=== PATIENT | male | born 1955 | race Caucasian/White ===

== ENCOUNTER 2016-11-21 14:05 | Outpatient (CLI) | payer BC ==
--- NOTE | 2016-11-21 15:56 | ULT ---
TESTICULAR/SCROTOL ULTRASOUND: History: Epididymitis and right testicular swelling. Technique: Multiplanar grayscale and color doppler images were obtained in a testicular/scrotal ultr asound. FINDINGS: Both testicles are normal in echogenicity without focal lesions and demonstrated normal symmetric in ternal flow. Small bilateral hydroceles are seen. Both epididymi appear enlarged without significant increased flow on one side compared to the either, or in relation to the testicle. IMPRESSION: 1. Bilateral hydroceles. 2. Enlargement of the epididymi without increased flow. POS: BRYAN
== END 2016-11-21 14:06 | disposition home or self-care (01) ==
LOC: ULT 14:05
PROVIDERS: ATTEND Family Medicine
DX: N45.1 Epididymitis (principal); N43.3 Hydrocele, unspecified; N50.89 Other specified disorders of the male genital organs
CPT/HCPCS: 76870; 93976

== ENCOUNTER 2017-04-15 15:30 | Outpatient (CLI) | payer BC | END 2017-04-15 15:31 | disposition home or self-care (01) | LOC: BICRAD 15:30 | PROVIDERS: ATTEND Chiropractor | DX: M54.5 Low back pain (principal); M47.22 Other spondylosis with radiculopathy, cervical region; M47.896 Other spondylosis, lumbar region | CPT/HCPCS: 72050; 72110 ==

== ENCOUNTER 2017-07-09 16:07 | Outpatient (CLI) | payer BC ==
[2017-07-09 16:43] LABS: #Eosinphils 0.2 thou/uL (0.0-0.7); #Monocytes 0.6 thou/uL (0.11-0.59); #Neutrophils 4.3 thou/uL (1.40-6.50); %Basophils 0.7 % (0.0-1.0); %Eosinophils 2.8 % (0.0-10.0); %Lymphocytes 27.9 % (21.0-51.0); %Monocytes 8.1 % (0.0-10.0); %Neutrophils 60.6 % (42.0-75.0); Hemoglobin 12.4 g/dL (14.0-18.0); Mean Corpuscular HGB CONC 34.8 g/dL (32.0-36.0); Mean Corpuscular Volume 97.8 fl (80.0-94.0); Mean Platelet Volume 8.3 fL (7.4-10.4); Platelet Count 242 thou/uL (130-400); RBC Distribution Width 13.6 % (11.5-14.5); Red Blood Cell (RBC) Count 3.65 mill/uL (4.70-6.10)
[2017-07-09 17:02] LABS: Anion Gap 10 mmol/L (10-20); BUN (Urea Nitrogen) 21 mg/dL (8.4-25.7); Calc. Creatinine Clearance 0 mL/min (70-130); Calcium 8.8 mg/dL (7.8-10.44); Carbon Dioxide 26 mmol/L (23-31); Chloride 105 mmol/L (98-107); Estimated GFR-MDRD 73; Glucose 98 mg/dL (80-115); Potassium 4.4 mmol/L (3.5-5.1); Sodium 137 mmol/L (136-145)
--- NOTE | 2017-07-10 20:25 | EKG ---
Test Reason : Blood Pressure : / mmHG Vent. Rate : 058 BPM Atrial Rate : 058 BPM P-R Int : 172 ms QRS Dur : 096 ms QT Int : 426 ms P-R-T Axes : 021 -15 -05 degrees QTc Int : 418 ms Sinus bradycardia Incomplete right bundle branch block Minimal voltage criteria for LVH, may be normal variant Borderline ECG No previous ECGs available Confirmed by RAFFY CORCORAN (2) on 07/10/2017 8:25:19 PM Referred By: CHIDI Confirmed By:RAFFY CORCORAN
== END 2017-07-09 16:08 | disposition home or self-care (01) ==
LOC: LABBT 16:07
PROVIDERS: ATTEND Surgery
DX: Z01.818 Encounter for other preprocedural examination (principal); K42.9 Umbilical hernia without obstruction or gangrene; R00.1 Bradycardia, unspecified
CPT/HCPCS: 80048; 85025; 93005; 93010

== ENCOUNTER 2017-07-18 06:57 | Day surgery (SDC) | payer BC ==
[2017-07-09 16:50] VITALS: BMI 29.2
[2017-07-18] MEDS ORDERED: CEFAZOLIN/Water 2 GM/20 ML SYRINGE ONE (08:02)
[2017-07-18] MEDS ORDERED: Bupivacaine/Epinephrine 0.25% 30 ML VIAL ONE (08:07)
[2017-07-18] MEDS ORDERED: Fentanyl 100 MCG/2 ML VIAL ONE ×2 (08:12→09:15)
[2017-07-18] MEDS ORDERED: HYDROcodone/Acetaminophen 5/325 mg Tablet ONE (10:45)
--- NOTE | 2017-07-18 16:57 | OP ---
DATE OF PROCEDURE: 07/18/2017 PREOPERATIVE DIAGNOSIS: Umbilical hernia. POSTOPERATIVE DIAGNOSIS: Umbilical hernia. PROCEDURE: Umbilical hernia repair with mesh, Bard Ventralex ST 4.3 cm. SURGEON: Jamarcus Heredia M.D. ANESTHESIA: General. ESTIMATED BLOOD LOSS: Minimal. COMPLICATIONS: None. SPECIMEN: None. FINDINGS: Umbilical hernia. TECHNIQUE: The patient was taken to the operating room and placed supine on the table. After genera l anesthetic was obtained, the abdomen was shaved, prepped and draped in a sterile fashion. Curved i ncision made below the umbilicus. Cautery was used to dissect down to and score the fascia. The umb ilical stalk is amputated exposing the umbilical defect. The omental fat is reduced back into the ab dominal cavity. The edges of the defect were freshened. The 4.[address] mesh brought into t he sterile field. The placed in the preperitoneal space, its pulled up flat against the biological technical officer ior abdominal wall. The tails were sewn via U stitch of permanent braided suture to the lateral surf aces to the superior and inferior as well. The tails were then cut at the level of the fascia. The wound is irrigated. Local anesthetic is applied. The fascia was closed loosely over the mesh. Umbi lical stalk is tacked down using 3-0 Vicryl, skin was closed using 3-0 Vicryl, 4-0 Monocryl, and Derm abond. The patient went to recovery in stable condition. All instrument counts, needle counts, lap counts were correct.
== END 2017-07-18 11:15 | disposition home or self-care (01) ==
LOC: SDC 06:57
PROVIDERS: ATTEND Surgery
PROC: 0WUF0JZ Supplement Abdominal Wall with Synthetic Substitute, Open Approach (ICD-10-PCS; principal; 2017-07-18)
DX: K42.9 Umbilical hernia without obstruction or gangrene (principal); I10 Essential (primary) hypertension; E78.5 Hyperlipidemia, unspecified; E05.90 Thyrotoxicosis, unspecified without thyrotoxic crisis or storm; Z79.899 Other long term (current) drug therapy; Z88.5 Allergy status to narcotic agent
CPT/HCPCS: 96374; J3010

== ENCOUNTER 2018-09-29 08:13 | Outpatient (CLI) | payer BC, OTHER ==
--- NOTE | 2018-09-29 10:59 | MRI ---
MRI LEFT SHOULDER: Date: 09/29/18 PROVIDED CLINICAL HISTORY: Left shoulder pain. FINDINGS: There is full thickness, near full width retracted tearing of the supraspinatus tendon with retractio n to above the level of the acromion. There is dislocation of the long head biceps tendon within the substance of the subscapularis tendon medial to the lesser tuberosity. The teres minor and infraspina tus tendons appear intact. The glenoid labrum and glenohumeral articular cartilage are suboptimally evaluated in the absence of joint distention, but appear grossly normal. The amount of fluid within the glenohumeral joint appears physiologic. There is greater than physiolo gic subacromial/subdeltoid bursal fluid on the basis of rotator cuff defect. Rotator cuff muscular volume appears preserved. No focal concerning regional marrow or muscular signa l abnormality apparent. Acromioclavicular joint osteoarthritic cyst with mass effect upon the subjace nt structures. IMPRESSION: 1. Full thickness, essentially full width mildly retracted supraspinatus tendon. 2. Dislocation of the long head biceps tendon within the substance of the subscapularis. 3. Acromioclavicular joint osteoarthrosis. POS: [facility]
== END 2018-09-29 08:14 | disposition home or self-care (01) ==
LOC: BICMRI 08:13
PROVIDERS: ATTEND Orthopaedic Surgery
DX: M75.42 Impingement syndrome of left shoulder (principal); M19.012 Primary osteoarthritis, left shoulder; M75.122 Complete rotator cuff tear or rupture of left shoulder, not specified as traumatic; S43.005A Unspecified dislocation of left shoulder joint, initial encounter
CPT/HCPCS: 36415; 80053; 80061; 81001; 84439; 84443; 84481; 84550; 85025; G0103

== ENCOUNTER 2018-10-09 13:51 | Outpatient (CLI) | payer BC ==
[2018-10-09 15:05] LABS: #Eosinphils 0.1 thou/uL (0.0-0.7); #Monocytes 0.6 thou/uL (0.11-0.59); #Neutrophils 5.4 thou/uL (1.40-6.50); %Basophils 0.3 % (0.0-1.0); %Eosinophils 1.6 % (0.0-10.0); %Lymphocytes 24.6 % (21.0-51.0); %Monocytes 7.4 % (0.0-10.0); %Neutrophils 66.2 % (42.0-75.0); Hemoglobin 12.7 g/dL (14.0-18.0); Mean Corpuscular HGB CONC 33.9 g/dL (32.0-36.0); Mean Corpuscular Hemoglobin 34.6 pg (27.0-31.0); Mean Platelet Volume 8.8 fL (7.4-10.4); Platelet Count 268 thou/uL (130-400); RBC Distribution Width 14.5 % (11.5-14.5); Red Blood Cell (RBC) Count 3.69 mill/uL (4.70-6.10); White Blood Cell (WBC) Count 8.2 thou/uL (4.8-10.8)
[2018-10-09 15:25] LABS: Anion Gap 9 mmol/L (10-20); BUN (Urea Nitrogen) 23 mg/dL (8.4-25.7); Calc. Creatinine Clearance 0 mL/min (70-130); Calcium 9.1 mg/dL (7.8-10.44); Carbon Dioxide 28 mmol/L (23-31); Chloride 105 mmol/L (98-107); Estimated GFR-MDRD 74; Glucose 101 mg/dL (80-115); Potassium 4.8 mmol/L (3.5-5.1); Sodium 137 mmol/L (136-145)
== END 2018-10-09 13:52 | disposition home or self-care (01) ==
LOC: LABBT 13:51
PROVIDERS: ATTEND Orthopaedic Surgery
DX: Z01.818 Encounter for other preprocedural examination (principal); S46.012A Strain of muscle(s) and tendon(s) of the rotator cuff of left shoulder, initial encounter
CPT/HCPCS: 80048; 85025; 93005; 93010

== ENCOUNTER 2018-10-22 06:03 | Day surgery (SDC) | payer BC ==
[2018-10-09 14:28] VITALS: BMI 27.9
--- NOTE | 2018-10-21 08:50 | HP ---
HISTORY OF PRESENT ILLNESS: The patient is a 63-year-old male, who injured his left shoulder in March pushing a wheelbarrow. He heard a pop and felt severe pain. He has had persistent problems despite rest, restriction of activities, anti-inflammatory medications, and previous cortisone injection. Pain is interfering with day-to-day activities including working, getting dressed, and sleeping. PAST MEDICAL HISTORY: The patient has a history of hypertension, hyperthyroidism, hyperlipidemia, low back pain and gout. He has also had previous cervical radiculopathy to improve with steroid injections. MEDICATIONS: His current medications include; 1. P.R.N. Benadryl and naproxen. 2. Methimazole. 3. Telmisartan. ALLERGIES: HE IS ALLERGIC TO CODEINE, WHICH CAUSES ITCHING. FAMILY HISTORY: Otherwise unremarkable. SOCIAL HISTORY: Otherwise unremarkable. REVIEW OF SYSTEMS: Otherwise unremarkable. PHYSICAL EXAMINATION: GENERAL: Reveals a healthy male. HEENT: Unremarkable. NECK: Supple. CHEST: Clear. HEART: Regular rate and rhythm. ABDOMEN: Soft and nontender. RECTAL: Deferred. GENITAL: Deferred. EXTREMITIES: Pertinent findings with his left shoulder. There is no definite atrophy or swelling. Forward flexion is 160 degrees, which is painful. He has 170 degrees of passive forward flexion. There is weakness of abduction and weakness of external rotation. There is good internal rotation and strength. There is tenderness over the biceps tendon. There is no instability. There is a positive impingement sign. Neurovascular exam is intact. Pulses are 2+. DIAGNOSTIC STUDIES: X-rays of the left shoulder reveal mild DJD of the AC joint. MRI scan of the left shoulder reveals a full-thickness, full width retracted supraspinatus tear and dislocation of the long head of the biceps within the substance of the subscapularis. IMPRESSION: Impingement syndrome and complete traumatic tear rotator cuff, left shoulder. PLAN: Open acromioplasty, rotator cuff repair and biceps tenodesis left shoulder. The nature of the surgery, length of recovery, potential complications such as infection, loss of motion, incomplete relief, rupture of the repair, neurovascular injury, and need for additional treatment and repeat surgery have been discussed in detail. Job ID: [id number]
[2018-10-22] MEDS ORDERED: Lidocaine 1% (PF) 30 ML VIAL ONE (06:47)
[2018-10-22] MEDS ORDERED: Midazolam HCl 2 mg/2 ml Vial ONE (06:47)
[2018-10-22] MEDS ORDERED: Fentanyl 100 MCG/2 ML VIAL ONE ×2 (06:47→09:40)
[2018-10-22] MEDS ORDERED: Ondansetron PF 4 MG/2 ML Vial IVP PRN (07:22)
[2018-10-22] MEDS ORDERED: Ropivacaine 0.2% 550 ML 550 ML NERVE BLCK SCH (07:22)
[2018-10-22] MEDS ORDERED: Promethazine HCl 25 MG/ML VIAL IM PRN (07:22)
[2018-10-22] MEDS ORDERED: HYDROcodone/Acetaminophen 10/325 mg Tablet PO PRN ×2 (07:22)
[2018-10-22] MEDS ORDERED: Zolpidem Tartrate 5 MG TAB PO PRN (07:22)
[2018-10-22] MEDS ORDERED: traMADol HCl 50 MG TAB PO PRN ×2 (07:22)
[2018-10-22] MEDS ORDERED: Ketorolac Tromethamine 30 MG/ML VIAL IVP SCH (12:00)
--- NOTE | 2018-10-22 12:17 | OP ---
DATE OF PROCEDURE: 10/22/2018 [employer] [employer] OPERATOR: Luke Perrin PA-C ANESTHESIA: General plus scalene block. PREOPERATIVE DIAGNOSES: Rotator cuff tear and biceps tendinitis, left shoulder. POSTOPERATIVE DIAGNOSES: Rotator cuff tear and biceps tendinitis, left shoulder. PROCEDURES PERFORMED: Open acromioplasty, rotator cuff repair, and biceps tenodesis, left shoulder. OPERATIVE FINDINGS: There was a chronic large retracted tear of the supraspinatus, infraspinatus, and upper portion of the subscapularis with dislocation of biceps tendon with moderate tendinitis of the biceps tendon. There was moderate subacromial impingement. Glenohumeral joint appeared to be normal. DESCRIPTION OF PROCEDURE: After satisfactory anesthesia was induced in a semi welch chair position, the patient was prepped and draped in routine manner. The shoulder was approached through an anterolateral incision made from the anterolateral edge of the acromion process, carried down through the subcutaneous tissues. Bleeding points were controlled with Bovie cautery. Deltoid raphe was developed and the deltotrapezial fascia split over the distal clavicle and acromion process in L-shaped fashion and the distal clavicle and acromion subperiosteally exposed. The acromion was excised with an osteotome, flushed with the clavicle and the undersurface beveled with osteotome and a rasp. A partial subacromial bursectomy was performed. Using sharp and blunt dissection , the tear was identified, The ends of the tear were freshened by sharp dissection. The biceps tendon was identified, tagged with a suture and the tendon divided and the proximal stump excised from the glenoid. A whipstitch was placed in the biceps tendon and then biceps tenodesis was accomplished with Bio-Tenodesis screw placed in the intertubercular groove after appropriate drilling over a guide pin. The screw was tightened and there was good position. The ends of the greater tuberosity were debrided with a rongeur in a bony bed established with rotator cuff repair. Two triple-loaded anchors were then placed in the greater tuberosity and the rotator cuff repaired, placing sutures in a posterior to anterior position and then tied. This was reinforced with a double row with 2 SwiveLock anchors, placing the sutures from the rotator cuff repair in a diagonal fashion in the proximal humerus. This appeared to give good stable repair. There was good range of motion and good clearance beneath this acromion. Wound was thoroughly irrigated. The deltoid was repaired back to bone with interrupted #1 Ethibond sutures. The deltoid raphe was closed with 0 Vicryl. Subcutaneous tissues were closed with 2-0 Vicryl and the skin was closed with a staple gun. Sterile dressing was applied. The patient immobilized in an arm sling. He was then awakened and taken to the recovery in stable condition. There were no apparent intraoperative complications. The estimated blood loss was approximately 100 mL. The patient will be discharged home in satisfactory condition, instructed on ice , elevation, wound care and given written wound care instructions and will be instructed in gentle pendulum exercises and isometrics of his biceps and triceps , but no active range of motion of his shoulders. He was given a prescription for [place] 10 for pain 60 tablets. He will be rechecked in my office in approximately 2 weeks or sooner if there are any problems prior to that time. Job ID: [id number] [facility]
[2018-10-22] MEDS ORDERED: Ropivacaine 0.5% HCl/PF (150 MG/30 ML VIAL) ONE (16:00)
[2018-10-22] MEDS ORDERED: Ropivacaine 0.2% HCl/PF (40 MG/20 ML VIAL) ONE (16:00)
[2018-10-22] MEDS ORDERED: PROPOFOL 200 MG/20 ML VIAL ONE (16:35)
[2018-10-22] MEDS ORDERED: ePHEDrine 50 MG/ML VIAL ONE (16:35)
[2018-10-22] MEDS ORDERED: Lidocaine 1% PF 5 ML VIAL ONE (16:35)
[2018-10-22] MEDS ORDERED: Rocuronium Bromide 10 MG/ML (10ML VIAL) ONE (16:35)
== END 2018-10-22 11:40 | disposition home or self-care (01) ==
LOC: SDC 06:03 → EDSTATUS 14:30
PROVIDERS: ATTEND Orthopaedic Surgery
PROC: 0LS40ZZ Reposition Left Upper Arm Tendon, Open Approach (ICD-10-PCS; principal; 2018-10-22)
PROC: 0RBH0ZZ Excision of Left Acromioclavicular Joint, Open Approach (ICD-10-PCS; principal; 2018-10-22)
PROC: 3E0T3BZ Introduction of Anesthetic Agent into Peripheral Nerves and Plexi, Percutaneous Approach (ICD-10-PCS; principal; 2018-10-22)
PROC: 0LQ20ZZ Repair Left Shoulder Tendon, Open Approach (ICD-10-PCS; principal; 2018-10-22)
DX: M75.122 Complete rotator cuff tear or rupture of left shoulder, not specified as traumatic (principal); M75.42 Impingement syndrome of left shoulder; M75.22 Bicipital tendinitis, left shoulder; E03.9 Hypothyroidism, unspecified; E78.5 Hyperlipidemia, unspecified; Z79.1 Long term (current) use of non-steroidal anti-inflammatories (NSAID); Z79.899 Other long term (current) drug therapy; Z88.5 Allergy status to narcotic agent; G89.18 Other acute postprocedural pain
CPT/HCPCS: A4306; J0690; J2001; J2250; J2704; J2795; J3010; J3490

== ENCOUNTER 2020-03-12 12:31 | Emergency (ER) | payer MEDICARE, OTHER ==
[2020-03-12] MEDS ORDERED: Boostrix 0.5 ML (Tdap) VIAL ONE (13:02)
[2020-03-12] MEDS ORDERED: Lidocaine 1% w/Epinephrine 1:100K 20 ML VIAL ONE ×2 (13:10→13:11)
[2020-03-12] MEDS ORDERED: Lidocaine 1% (PF) 30 ML VIAL ONE (13:58)
[2020-03-12] MEDS ORDERED: Lidocaine 1.5%/Epinephrine 1:200,000 5 ML AMPUL IJ SCH (14:00)
[2020-03-12] MEDS ORDERED: Bacitracin 1 PK ONE (14:38)
== END 2020-03-12 14:50 | disposition home or self-care (01) ==
LOC: ERS 12:31
DX: S61.412A Laceration without foreign body of left hand, initial encounter (principal); E03.9 Hypothyroidism, unspecified; I10 Essential (primary) hypertension; M10.9 Gout, unspecified; Z79.899 Other long term (current) drug therapy; W26.9XXA Contact with unspecified sharp object(s), initial encounter
CPT/HCPCS: 12002; 90471; 90715; J2001; J3490

== ENCOUNTER 2022-08-10 09:37 | Outpatient (CLI) | payer MEDICARE, OTHER | END 2022-08-10 09:38 | disposition home or self-care (01) | LOC: BICRAD 09:37 | PROVIDERS: ATTEND Family Medicine | DX: R07.89 Other chest pain (principal) | CPT/HCPCS: 71046 ==

== ENCOUNTER 2022-09-06 07:59 | Outpatient (CLI) | payer MEDICARE, OTHER | END 2022-09-06 08:00 | disposition home or self-care (01) | LOC: BICCT 07:59 | PROVIDERS: ATTEND Surgery | DX: K43.9 Ventral hernia without obstruction or gangrene (principal); N20.0 Calculus of kidney; N28.1 Cyst of kidney, acquired; K59.00 Constipation, unspecified; K31.89 Other diseases of stomach and duodenum | CPT/HCPCS: 74177; 82565 ==

== ENCOUNTER 2022-10-08 12:49 | Outpatient (CLI) | payer MEDICARE, OTHER ==
[2022-10-08 13:41] LABS: #Basophils 0.1 10x3/uL (0.0-0.2); #Eosinphils 0.2 10x3/uL (0.0-0.5); #Monocytes 0.6 10x3/uL (0.0-1.1); #Neutrophils 3.8 10x3/uL (1.5-8.4); %Basophils 1.2 % (0.0-2.0); %Eosinophils 2.6 % (0.0-6.0); %Lymphocytes 27.5 % (18.0-47.0); %Monocytes 8.9 % (0.0-10.0); Hematocrit 29.6 % (38.8-50.0); Hemoglobin 9.8 g/dL (13.5-17.5); Mean Corpuscular HGB CONC 33.1 g/dL (32.0-36.0); Mean Corpuscular Hemoglobin 33.8 pg (27.0-33.0); Mean Corpuscular Volume 102.1 fl (81.2-95.1); Mean Platelet Volume 12.9 fl (7.4-10.4); Platelet Count 289 10x3/uL (150-450); RBC Distribution Width 21.3 % (11.5-14.5); White Blood Cell (WBC) Count 6.6 10x3/uL (3.5-10.5)
[2022-10-08 14:22] LABS: Anion Gap 14 mmol/L (10-20); BUN (Urea Nitrogen) 19 mg/dL (8.4-25.7); Calc. Creatinine Clearance 0 mL/min (70-130); Calcium 8.8 mg/dL (7.8-10.44); Carbon Dioxide 25 mmol/L (23-31); Chloride 102 mmol/L (98-107); Estimated GFR 89; Glucose 124 mg/dL (80-115); Potassium 4.4 mmol/L (3.5-5.1); Sodium 137 mmol/L (136-145)
== END 2022-10-08 12:50 | disposition home or self-care (01) ==
LOC: LABBT 12:49
PROVIDERS: ATTEND Surgery
DX: Z01.812 Encounter for preprocedural laboratory examination (principal); K40.90 Unilateral inguinal hernia, without obstruction or gangrene, not specified as recurrent
CPT/HCPCS: 80048; 85025

== ENCOUNTER 2022-10-10 05:58 | Day surgery (SDC) | payer MEDICARE, OTHER ==
[2022-10-08 13:25] VITALS: BMI 23.9
[2022-10-10] MEDS ORDERED: EPINEPHrine 1 MG/ML AMP ONE (06:39)
[2022-10-10] MEDS ORDERED: Bupivacaine 0.25% HCL 30 ML VIAL ONE (06:39)
[2022-10-10] MEDS ORDERED: Sodium Chloride 0.9% 100 ML ONE (06:41)
[2022-10-10] MEDS ORDERED: CEFAZOLIN 2 GM VIAL ONE (06:41)
[2022-10-10] MEDS ORDERED: fentaNYL PF 100 MCG/2 ML SYRINGE ONE (06:42)
[2022-10-10] MEDS ORDERED: PROPOFOL 200 MG/20 ML VIAL ONE (07:45)
[2022-10-10] MEDS ORDERED: Dexamethasone 20 MG/5 ML VIAL ONE (07:45)
[2022-10-10] MEDS ORDERED: Rocuronium Bromide 10 MG/ML (10ML VIAL) ONE (07:45)
[2022-10-10] MEDS ORDERED: Lidocaine 1% PF 5 ML VIAL ONE (07:45)
[2022-10-10] MEDS ORDERED: ePHEDrine Sulfate 50 MG/10 ML VIAL ONE (07:45)
[2022-10-10] MEDS ORDERED: Ondansetron PF 4 MG/2 ML Vial ONE (07:45)
[2022-10-10] MEDS ORDERED: Glycopyrrolate 0.2 MG/ML 5 ML SYRINGE ONE (07:45)
[2022-10-10] MEDS ORDERED: Ketorolac Tromethamine 30 MG/ML VIAL ONE (07:45)
[2022-10-10] MEDS ORDERED: SUGAMMADEX SODIUM 200 MG/2 ML VIAL ONE (08:54)
== END 2022-10-10 13:25 | disposition home or self-care (01) ==
LOC: SDC 05:58
PROVIDERS: ATTEND Surgery
PROC: 0YU64JZ Supplement Left Inguinal Region with Synthetic Substitute, Percutaneous Endoscopic Approach (ICD-10-PCS; principal; 2022-10-10)
DX: K40.90 Unilateral inguinal hernia, without obstruction or gangrene, not specified as recurrent (principal); I10 Essential (primary) hypertension; E03.9 Hypothyroidism, unspecified; E78.5 Hyperlipidemia, unspecified; Z88.6 Allergy status to analgesic agent
CPT/HCPCS: 49650; C1781; J0171; J1100; J1885; J2405; J2704; J3490; S0020